=== PATIENT | female | born 1970 | race Caucasian/White ===

== ENCOUNTER 2019-12-27 22:20 | Emergency (ER) | payer MEDICARE ==
[~2019-12-27] VITALS: Ht 162.6 cm; Wt 72.7 kg
[~2019-12-27 22:20] MED LIST: ACET500C15 PO; ALLO100T PO; ATOR10TA PO; CYAN-25 SL; FLUT16SP2 NS; GABA-689 PO; GABA300C18 PO; METO-269 PO; MORP60TA37 PO; MULT-445 PO; RANI300T3 PO; TIZA4CAP3 PO; TOPI200T25 PO; VENL75TA PO
--- NOTE | 2019-12-27 23:04 | PHYS DOC ---
Past Medical History Past Medical History: Other Additional Past Medical Histor: Complex regional pain syndrome, migraines Past Surgical History: Tonsillectomy, Other Additional Past Surgical Histo: x5 abd laproscopy, CO2 LASER OF CERVIX, ALUNA(ENDOMETRIOSIS), NOSE Smoking Status: Never Smoker Alcohol Use: None General Adult EDM: Chief Complaint: INSECT BITE HPI: HPI: 49-year-old female past medical history of reflex sympathetic dystrophy, presents the ED with complaints of 2 painless bumps on left inner upper arm that she noticed when she woke up this morning-believes to be a spider bite but saw no insect. Since then, rash has significantly spread, c/o pain w/itching and burning. States she has had a similar injury to her right forearm that was seen a few years ago at the wound care center. No known history of MRSA. Is not on any chronic steroids or and has no immunocompromise state. Believes she was previously bite by a brown recluse spider. Tetanus is UTD. ROS: Patient denies associated fever, chills, cough, dyspnea, nausea, vomiting, cramps, abdominal pain, leg swelling, neurologic deficits, headache, neck stiffness, chest pain, angioedema, sore throat. Review of Systems: Review of Systems: Constitutional: Denies fever or chills. [] Eyes: Denies change in visual acuity. [] HENT: Denies nasal congestion or sore throat. [] Respiratory: Denies cough or shortness of breath. [] Cardiovascular: Denies chest pain or edema. [] GI: Denies abdominal pain, nausea, vomiting, bloody stools or diarrhea. [] : Denies dysuria. [] Musculoskeletal: Denies back pain or joint pain. [] Integument: Denies rash. [] Neurologic: Denies headache, focal weakness or sensory changes. [] Endocrine: Denies polyuria or polydipsia. [] Lymphatic: Denies swollen glands. [] Psychiatric: Denies depression or anxiety. [] Allergies: Allergies: Allergies Coded Allergies Type Severity Reaction Last Updated Verified No Known Drug Allergies 07/04/14 No Physical Exam: PE: Constitutional: Well developed, well nourished, no acute distress, non-toxic appearance. [] HENT: Normocephalic, atraumatic, bilateral external ears normal, oropharynx moist, no oral exudates, nose normal. [] Eyes: EOMI, conjunctiva normal, no discharge. [] Neck: Normal range of motion, no tenderness, supple, no stridor. [] Cardiovascular:Heart rate regular rhythm, no murmur [] Lungs & Thorax: Bilateral breath sounds clear to auscultation [] Abdomen: Bowel sounds normal, soft, no tenderness, no masses, no pulsatile masses. [] Skin: Warm, dry, no erythema, no rash. [] Back: No tenderness, no CVA tenderness. [] Extremities: No tenderness, no cyanosis, no clubbing, ROM intact, no edema, large 10x8 rash inner upper left arm (right hand dominant) with external 3cm ring of erythema, inner augustine with blue skin/petechia/hemorrhage - appears to be cyanotic Neurologic: Alert and oriented X 3, normal motor function, normal sensory function, no focal deficits noted. [] Psychologic: Affect normal, judgement normal, mood normal. [] Current Patient Data: Vital Signs: Vital Signs Date Time Temp Pulse Resp B/P (MAP) Pulse Ox O2 Delivery O2 Flow Rate FiO2 12/27/19 22:32 98.0 80 18 117/64 (81) 99 Room Air 98.0 EKG: EKG: [] Radiology/Procedures: Radiology/Procedures: [] Impression: Concern for hemorrhagic rash on patient's left upper forearm after 2 small bites. Given appearance of rash with central cyanosis, blue skin coloration and hemorrhage petechiae, this is highly concerning for brown recluse. Cannot confirm this given no witnessed spider. Labs show no coagulopathy. Patient with no signs of fever or chills, cramps, other bruising/bleeding (DIC) or decreased UO (renal injury). Life-threatening rashes including Dickerson-Maximino syndrome, EM, etc, are considered, low suspicion given well appearance of patient, no mucous membrane involvement, negative Nikolsky sign. Patient will be given infectious disease outpatient follow-up information for wound care follow-up. Pts' tetanus is UTD. Will start on Bactrim to cover for cellulitis. Encourage PMD follow-up. All of patient's questions were answered and she was stable at time of discharge. Course & Med Decision Making: Course & Med Decision Making Pertinent Labs and Imaging studies reviewed. (See chart for details) [] Dragon Disclaimer: Dragon Disclaimer: This electronic medical record was generated, in whole or in part, using a voice recognition dictation system. Departure Departure Impression: Primary Impression: Brown recluse spider bite Disposition: 01 HOME, SELF-CARE Condition: STABLE Referrals: NO PCP (PCP) HUBER DUNLAP MD [phone], Infectious disease Patient Instructions: Brown Recluse Spider Bite Scripts Sulfamethoxazole/Trimethoprim (BACTRIM DS TABLET) 1 Each Tablet 1 TAB PO BID for infection, #14 TAB Prov: EDMUND LAZARO DO 12/28/19 Justicifation of Admission Dx: Justifications for Admission: Justification of Admission Dx: No EDMUND LAZARO DO Dec 27, 2019 23:04
[2019-12-28] MEDS ORDERED: SMZ/TMP 800/160MG TABLET. PO ONE
[2019-12-28] MEDS ORDERED: HYDROcodone/APAP 5/325MG 1 TAB TABLET PO ONE
[2019-12-28] MEDS ORDERED: SULF1TAB24 PO (00:38)
[2019-12-28 00:46] VITALS: BP 130/79
== END 2019-12-28 00:46 | disposition home or self-care (01) ==
LOC: ER 22:20
DX: T63.331A Toxic effect of venom of brown recluse spider, accidental (unintentional), initial encounter (principal); G43.909 Migraine, unspecified, not intractable, without status migrainosus; G90.50 Complex regional pain syndrome I, unspecified; Y92.89 Other specified places as the place of occurrence of the external cause
CPT/HCPCS: 99283

== ENCOUNTER → 2021-02-11 | Outpatient (CLI) | payer MEDICARE ==
[~2021-02-11] MED LIST changes: +SULF1TAB24 PO
--- NOTE | 2021-02-11 15:31 | KCIC ---
EXAMINATION: Magnetic resonance imaging (MRI) of the brain and brainstem without contrast 02/11/2021 2 :35 PM HISTORY: G43.719, H57.11, H57.12 TECHNIQUE: Multiplanar multi-weighted MRI of the brain and brainstem was performed without intravenou s contrast using the general brain protocol. COMPARISON: MRI brain 05/21/2016 FINDINGS: The scalp and calvarium are normal. The superior sagittal sinus demonstrates normal venous flow. The corpus callosum is normal in shape and signal intensity. Cerebellar tonsils extend 4 mm below the le maged of the foramen magnum. The pituitary and sella are normal. The brainstem and craniocervical avel ction are unremarkable. 3 mm FLAIR hyperintense focus and subcortical white matter and left frontal l obe (series 7, image 17) is within the range of age-related changes. There is cavum septum pellucidum . Diffusion weighted images reveal no hyperintensities to suggest acute cerebral infarction. The suscep tibility weighted sequences reveal no evidence of acute or chronic hemorrhage. The ventricles are nor mal in size and position without evidence of hydrocephalus. The paranasal sinuses are normal. The visualized portions of the mastoids are unremarkable. The orbi ts appear normal. Normal flow voids are demonstrated in the carotid arteries and basilar artery. IMPRESSION: 1. No evidence for acute or subacute ischemia. 2. Borderline cerebellar tonsillar ectopia measuring 4 mm below level of the foramen magnum. No mass effect on the medulla by the tonsils. Electronically signed by: Irlanda Reynaga MD (02/11/2021 3:29 PM) [id number]
== END ==
LOC: KCIC MRI 13:26
PROVIDERS: ATTEND Nurse Practitioner Family
DX: G43.719 Chronic migraine without aura, intractable, without status migrainosus (principal); G93.2 Benign intracranial hypertension; H57.11 Ocular pain, right eye; H57.12 Ocular pain, left eye
CPT/HCPCS: 70551